=== PATIENT | female | born 2005 | race Two or more races ===

== ENCOUNTER 2025-06-02 10:23 | Outpatient (OUT) | payer BC, SELFPAY ==
--- OUTSIDE RECORDS SUMMARY | 2023-02-22 04:30 | XMS_ITS | Continuity of Care Document ---
Author Organization [facility] Address [address] [place] [address] Phone Care Team Providers Care Core Baker Name Role Phone Shayy WANG, Immanuel Unavailable Unavailable Procedures Procedure Date ADM Pfizer Covid-19 Ready To Use, 2nd Ap Pfizer Reat To Use VAC 30MCG/0.3ML IM Ap Advance Directives Directive Yes / No Effective Date File Name No Information Encounters Encounter Description Practice Location Reason(s) For Visit Diagnoses Date Provider Providers Copied on Encounter [facility], [address], [place], [id number], [place] tel:[phone] COVID [facility] No Information [facility]. [address], [place], [id number], [place]. tel:[phone] Family History Family Member Type Diagnosis Age At Onset No Information Immunizations Vaccine Date Status Comments Flulaval/ Fluarix refused Source: Ne w Immunization Record Pfizer COVID 12y and up administered Sour ce: New Immunization Record Payers Payer name Insurance type Covered alliance party ID Authoriza tion(s) Self Pay Cap [id number] Social History Type Description Quantity Date Captured Comments Alcohol Use Details Unknown Caffeine Use Details Unknown Tobacco Use Status No Information Smoking Status No Information Sex Female Sexual Orientation Straight or heterosexual Gender Identity Female Chief Complaint And Reason For Visit No Information Reason For Referral Reason For Referral No Information Plan Of Treatment Date Type Action Status Goal PRAPARE ASSESSMENT. Due on A due Goal Depression screening. Due on due Goal Influenza vaccine. Due on Ap due Goal Tdap Vaccine. Due on 2022 due Goal RLP. Due on due Goal Tdap. Due on due History Of Present Illness Encounter Date Complaint History Of Prese nt Illness No Information Functional Status Date Functional Assessmen t No Information Instructions Date Instruction Additional Infor mation No Information Assessments Type Assessment Date No Information Patient Care Teams Name Effective Dates (start - stop) Status Members No Information
--- OUTSIDE RECORDS SUMMARY | 2025-05-24 09:30 | XMS_ITS | Encounter Summary ---
Author Organization [facility] Address [address] [place] [address] Care Team Providers Care Oil And Gas Recruiter Name Role Phone Unavailable Primary Care Provider Unavailabl e Reason for Visit * Reason Comments Gynecologic Exam Encounter Details Date Type Department Care Team ([facility] Contact Info) Description 05/24/2025 9:30 AM EDT Office Visit [facility] [address] [id number] Carmen Wallace PA [address] [place] [address] PCOS (polycystic ovarian syndrome) (Primary Dx); Dysmenorrhea; Weight loss; Abnormality of hormone Social History Tobacco Use Types Packs/Day Years Used Date Smoking Tobacco: Never Smokeless Tobacco: Never Alcohol Use Standard Drinks/Week Comments Not Currently 0 (1 standard drink = 0.6 oz pur e alcohol) Comments Unknown Sex and Gender Information Value Date Recorded Sex Assigned at Not on file Legal Sex Female 6:38 PM EDT Gender Identity Not on file Sexual Orientation Not on file Travel History Travel Start Travel End [place] 05/08/2025 05/09/2025 documented as of this encounter Last Filed Vital Signs Vital Sign Reading Time Taken Comments Blood Pressure 126/82 05/24/2025 9:31 AM EDT Pulse - - Temperature - - Respiratory Rate - - Oxygen Saturation - - Inhaled Oxygen Concentration - - Weight 86.5 kg (190 lb 12.8 oz) 05/24/2025 9:31 AM EDT Height - - Body Mass Index - - documented in this encounter Progress Notes * MARK Coombs - 05/24/2025 9:30 AM EDT Reason for Appointment: Patient ID: Ashlyn Guthrie is a 19 y.o. female who presents for Gynecologic Exam Patient presents today for Acute Visit.wants to discuss cycles and hormones MEDICATIONS Current Outpatient Medications Medication Instructions metFORMIN XR (GLUCOPHAGE-XR) 500 mg, Oral, Daily with evening meal, Do not crush, chew, or split. ALLERGIES Allergies Allergen Reactions Aspirin Other With a clotting disorder history PROBLEMS Active Ambulatory Problems Diagnosis Date Noted No Active Ambulatory Problems Resolved Ambulatory Problems Diagnosis Date Noted No Resolved Ambulatory Problems Past Medical History: Diagnosis Date Acute idiopathic thrombocytopenic purpura (HCC) HISTORY PAST MEDICAL HISTORY SOCIAL HISTORY Past Medical History: Diagnosis Date Acute idiopathic thrombocytopenic purpura (HCC) Social History Tobacco Use Smoking status: Never Smokeless tobacco: Never Substance Use Topics Alcohol use: Not Currently Drug use: Not Currently FAMILY HISTORY No family history on file. SURGICAL HISTORY Past Surgical History: Procedure Laterality Date APPENDECTOMY REVIEW OF SYSTEMS Review of Systems: Review of Systems Constitutional: Negative. HENT: Negative. Eyes: Negative. Respiratory: Negative. Cardiovascular: Negative. Gastrointestinal: Negative. Genitourinary: Negative. Musculoskeletal: Negative. Skin: Negative. Neurological: Negative. All other systems reviewed and are negative. Hematological: Negative. Endocrine: Negative. Allergic/Immunologic: Negative. OBJECTIVE Objective: Physical Exam Constitutional: Appearance: Normal appearance. She is normal weight. HENT: Head: Normocephalic. Cardiovascular: Rate and Rhythm: Normal rate. Pulses: Normal pulses. Pulmonary: Effort: Pulmonary effort is normal. Breath sounds: Normal breath sounds. Abdominal: Palpations: Abdomen is soft. Musculoskeletal: General: Normal range of motion. Neurological: General: No focal deficit present. Mental Status: She is alert and oriented to person, place, and time. Psychiatric: Mood and Affect: Mood normal. Behavior: Behavior normal. Thought Content: Thought content normal. Judgment: Judgment normal. Vitals and nursing note reviewed. Vitals: There is no height or weight on file to calculate BMI. BP: 126/82 Patient's last menstrual period was 04/23/2025. ASSESSMENT & PLAN ICD-10-CM 1. PCOS (polycystic ovarian syndrome) E28.2 hCG, quantitative, TSH T4, free CBC and differential Follicle stimulating hormone Luteinizing hormone Hemoglobin A1c DHEA-sulfate DHEA US Pelvis w/ TV metFORMIN XR (Glucophage-XR) 500 MG 24 hr tablet DHEA 2. Dysmenorrhea N94.6 3. Weight loss R63.4 POCT , urine manually resulted 4. Abnormality of hormone E34.9 Patient presents for first ob appointment. Patient wanted to discuss cycles and irregularity. She states most recently her cycles have been more normal but she had several months of heavier period. She denies pain with cycles or known history of PCOS. States mom has endometriosis and sister pcos. We discussed trying metformin to help with weight loss and discussed adipex in the future. We will order labs and US for pcos. Patient does not wish to start hormone therapy. She will schedule for annual exam and we will then review results Documented by MARK Coombs on behalf of: MARK Coombs documented in this encounter Plan of Treatment Pending Results Name Type Priority Associated Diagnoses Date /Time US Pelvis w/ TV Imaging Routine PCOS (polycystic ovarian syndrome) 06/02/2025 10:00 AM EDT Scheduled Orders Name Type Priority Associated Diagnoses Orde r Schedule hCG, quantitative, Lab Routine PCOS (polycystic ovarian syndrome) Ordered: 05/24/2025 TSH Lab Routine PCOS (polycystic ovarian syndrome) Ordered: 05/24/2025 T4, free Lab Routine PCOS (polycystic ovarian syndrome) Ordered: 05/24/2025 CBC and differential Lab Routine PCOS (polycystic ovarian syndrome) Ordered: 05/24/2025 Follicle stimulating hormone Lab Routine PCOS (polycystic ovarian syndrome) Ordered: 05/24/2025 Luteinizing hormone Lab Routine PCOS (polycystic ovarian syndrome) Ordered: 05/24/2025 Hemoglobin A1c Lab Routine PCOS (polycystic ovarian syndrome) Ordered: 05/24/2025 DHEA-sulfate Lab Routine PCOS (polycystic ovarian syndrome) Ordered: 05/24/2025 DHEA Lab Routine PCOS (polycystic ovarian syndrome) Expected: 05/24/2025 (Approximate), Expires: 05/24/2026 US Pelvis w/ TV Imaging Routine PCOS (polycystic ovarian syndrome) Expected: 05/24/2025, Expires: 05/24/2026 documented as of this encounter Procedures Procedure Name Priority Date/Time Associated Diagnosis Comments POCT , URINE Routine 05/24/2025 9:55 AM EDT Weight loss documented in this encounter Results * POCT , urine manually resulted (05/24/2025 9:55 AM EDT) Preg Test, Ur Negative Negative Urine 05/24/2025 9:55 AM EDT Carmen FLORES POINT OF CARE TEST ENTER/EDIT OR DERABLES Final Result documented in this encounter Visit Diagnoses Diagnosis PCOS (polycystic ovarian syndrome)- Primary Polycystic ovaries Dysmenorrhea Weight loss Loss of weight Abnormality of hormone documented in this encounter
--- OUTSIDE RECORDS SUMMARY | 2025-06-02 09:30 | XMS_ITS | Encounter Summary ---
Author Organization [facility] Address [address] [place] [address] Care Team Providers Care Oral Communication Instructor Name Role Phone Unavailable Primary Care Provider Unavailabl e Encounter Details Date Type Department Care Team (Latest Contact Info) Description 06/02/2025 9:30 AM EDT Ancillary Procedure [facility] [address] [place] [address] [place] [address] PCOS (polycystic ovarian syndrome) Social History Tobacco Use Types Packs/Day Years [...] file Travel History Travel Start Travel End [place] 05/08/2025 05/09/2025 documented as of this encounter Plan of Treatment Pending Results Name Type Priority Associated Diagnoses Date /Time US Pelvis w/ TV Imaging Routine PCOS (polycystic ovarian syndrome) 06/02/2025 10:00 AM EDT documented as of this encounter Visit Diagnoses Diagnosis PCOS (polycystic ovarian syndrome) Polycystic ovaries documented in this encounter
--- OUTSIDE RECORDS SUMMARY | 2025-06-02 10:32 | XMS_ITS | Clinical Summary ---
Author Organization [facility] Address [address] [place] [address] Care Team Providers Care Edge Trimmer Mechanic Name Role Phone Unavailable Primary Care Provider Unavailabl e Allergies Active Allergy Reactions Criticality Noted Date Comments Aspirin Other Medium 05/24/2025 With a clotting disorder history Medications metFORMIN XR (Glucophage-XR) 500 MG 24 hr tabletIndication s:PCOS (polycystic ovarian syndrome) Take 1 tablet (500 mg) by mouth in the evening. Take with meals Do not crush, chew, or split. 30 tablet 11 05/24/2025 Active Encounters Date Type Department Care Team Description 06/02/2025 9:30 AM EDT Ancillary Procedure [facility] [address] [place] [address] PCOS (polycystic ovarian syndrome) 05/24/2025 9:30 AM EDT Office Visit [facility] [address] [place] [id number] Carmen Wallace PA PCOS (polycystic ovarian syndrome) (Primary Dx); Dysmenorrhea; Weight loss; Abnormality of hormone 05/24/2025 Bamboo flowsheet [facility] [address] [place] [address] Carmen Wallace PA 05/23/2025 Travel from Last 3 Months Social History Tobacco Use Types Packs/Day Years [...] file Travel History Travel Start Travel End [place] 05/08/2025 05/09/2025 Last Filed Vital Signs Vital Sign Reading Time Taken Comments Blood Pressure 126/82 05/24/2025 9:31 AM EDT Pulse - - Temperature - - Respiratory Rate - - Oxygen Saturation - - Inhaled Oxygen Concentration - - Weight 86.5 kg (190 lb 12.8 oz) 05/24/2025 9:31 AM EDT Height - - Body Mass Index - - Plan of Treatment Health Maintenance Due Date Last Done Comments Influenza Vaccine (#1) 2025 Procedures Procedure Name Priority Date/Time Associated Diagnosis Comments POCT , URINE Routine 05/24/2025 9:55 AM EDT Weight loss from Last 3 Months Results * POCT , urine manually resulted (05/24/2025 9:55 AM EDT) Preg Test, Ur Negative Negative Urine 05/24/2025 9:55 AM EDT Carmen FLORES POINT OF CARE TEST ENTER/EDIT OR DERABLES Final Result from Last 3 Months Insurance
--- OUTSIDE RECORDS SUMMARY | 2025-06-02 10:32 | XMS_ITS | Encounter Summary ---
Author Organization [facility] Address [address] [place] [address] Care Team Providers Care Mechanic Sound Technician Name Role Phone Unavailable Primary Care Provider Unavailabl e Encounter Details Date Type Department Care Team (Late st Contact Info) Description 05/24/2025 Bamboo flowsheet [facility] [address] [address] Carmen Wallace, PA [address] [place] [address] Social History Tobacco Use Types Packs/Day Years [...] file Travel History Travel Start Travel End [place] 05/08/2025 05/09/2025 documented as of this encounter Plan of Treatment Not on file documented as of this encounter Visit Diagnoses Not on filedocumented in this encounter
--- OUTSIDE RECORDS SUMMARY | 2025-06-02 10:32 | XMS_ITS | Encounter Summary ---
Author Organization [facility] Address [address] [place] [address] Care Team Providers Care Bike Technician Name Role Phone Unavailable Primary Care Provider Unavailabl e Encounter Details Date Type Department Care Team (Latest Contact Info) Description 05/23/2025 Travel Social History Tobacco Use Types Packs/Day Years Used Date Smoking Tobacco: Never Assessed Comments Unknown Sex and Gender Information Value [...]
--- OUTSIDE RECORDS SUMMARY | 2025-06-02 10:32 | XMS_ITS | Patient Health Record ---
Author Organization [facility] Address [address] [place] [id number] Care Team Providers Care Movie Actor Name Role Phone Eliazar iH Unavailable [phone] Allergies Allergen (clinical drug ingredient) Drug/Non Drug Allergy documented on EMR Reaction Allergy Type Onset Date Status aspirin Aspirin Unknown Drug Allergy 06/15/2019 Active Reason For Referral No Information Immunizations Vaccine Route Administration Date Status Comme nts *DTaP (Infanrix)-VFC OTH Other/Miscellaneous 2003 Administered Status:Complet e ,Reason:Given or N/A *DTaP (Infanrix)-VFC OTH Other/Miscellaneous 06/19/2004 Administered Status:Complet e ,Reason:Given or N/A *DTaP (Infanrix)-VFC OTH Other/Miscellaneous 08/30/2004 Administered Status:Complet e ,Reason:Given or N/A *DTaP (Infanrix)-VFC OTH Other/Miscellaneous 11/30/2005 Administered Status:Complet e ,Reason:Given or N/A *DTaP (Infanrix)-VFC OTH Other/Miscellaneous 10/20/2007 Administered Status:Complet e ,Reason:Given or N/A *Hep A, ped/adol, 2 dose-VFC IM Intramuscular 05/31/2016 Administered Status:Complet e ,Reason:Given or N/A *Hep A, ped/adol, 2 dose-VFC IM Intramuscular 09/24/2018 Administered Status:Complet e ,Reason:Given or N/A *Hep B, adolescent or pediatric (11-19), 3 dose schedule-VFC OTH Other/Miscellaneous 2003 Administered Status:Complet e ,Reason:Given or N/A *Hep B, adolescent or pediatric (11-19), 3 dose schedule-VFC OTH Other/Miscellaneous 06/19/2004 Administered Status:Complet e ,Reason:Given or N/A *Hep B, adolescent or pediatric (11-19), 3 dose schedule-VFC OTH Other/Miscellaneous 08/30/2004 Administered Status:Complet e ,Reason:Given or N/A *MMR-VFC OTH Other/Miscellaneous 08/30/2004 Administered Status:Complet e ,Reason:Given or N/A *MMR-VFC OTH Other/Miscellaneous 10/20/2007 Administered Status:Complet e ,Reason:Given or N/A *MMR-VFC OTH Other/Miscellaneous 11/24/2014 Administered Status:Complet e ,Reason:Given or N/A *Pneumococcal conjugate PCV 13-VFC OTH Other/Miscellaneous 11/30/2005 Administered Status:Complet e ,Reason:Given or N/A *Pneumococcal conjugate PCV 13-VFC OTH Other/Miscellaneous 10/20/2007 Administered Status:Complet e ,Reason:Given or N/A *Tdap (Adacel)-VFC IM Intramuscular 10/06/2014 Administere d Status:Complet e ,Reason:Given or N/A *Varicella (Varivax)-VFC OTH Other/Miscellaneous 11/30/2005 Administered Status:Complet e ,Reason:Given or N/A DTaP-Hep B-IPV OTH Other/Miscellaneous 2003 Administered Status:Complet e ,Reason:Given or N/A DTaP-Hep B-IPV OTH Other/Miscellaneous 2003 Administered Status:Complet e ,Reason:Given or N/A DTaP-Hep B-IPV OTH Other/Miscellaneous 02/03/2004 Administered Status:Complet e ,Reason:Given or N/A DTaP-Hep B-IPV OTH Other/Miscellaneous 06/19/2004 Administered Status:Complet e ,Reason:Given or N/A DTaP-Hep B-IPV OTH Other/Miscellaneous 10/20/2007 Administered Status:Complet e ,Reason:Given or N/A Hib (HbOC), 4 dose schedule OTH Other/Miscellaneous 2003 Administered Status:Complet e ,Reason:Given or N/A Hib (HbOC), 4 dose schedule OTH Other/Miscellaneous 06/19/2004 Administered Status:Complet e ,Reason:Given or N/A Hib (HbOC), 4 dose schedule OTH Other/Miscellaneous 08/30/2004 Administered Status:Complet e ,Reason:Given or N/A HPV (human papillomavirus), quadrivalent, 3 dose schedule IM Intramuscular 10/06/2014 Administered Status:Complet e ,Reason:Given or N/A HPV (human papillomavirus), quadrivalent, 3 dose schedule OTH Other/Miscellaneous 02/04/2015 Administered Status:Complet e ,Reason:Given or N/A HPV (human papillomavirus), quadrivalent, 3 dose schedule IM Intramuscular 05/31/2016 Administered Status:Complet e ,Reason:Given or N/A Influenza (split), 3 yrs and above OTH Other/Miscellaneous 10/20/2007 Administered Status:Complet e ,Reason:Given or N/A Meningococcal [id number] IM Intramuscular 10/06/2014 Administered Status:Complet e ,Reason:Given or N/A Meningococcal MCV4P IM Intramuscular 08/01/2021 Administer ed Status:Complet e ,Reason:Given or N/A Social History Tobacco Use: Social History Observation Description Date Details (start date - stop date) Never Smoker NA - NA Sex Assigned At : Social History Observation Description Sex Assigned At Female Household Question Answer Notes Number of adults in household: 4 Number of children in household: 0 Tobacco Use/Smoking Question Answer Notes Tobacco use: nonsmoker Alcohol Screen (Audit-C) Question Answer Notes Did you have a drink containing alcohol in the p ast year? No Points 0 Interpretation Negative Problems Problem Type SNOMED Code ICD Code Onset Dates Problem Status W/U Status Risk Notes Problem BMI (body mass index), pediatric, 5% to less than 85% for age (V85.52) (V85.52) Active confirmed Problem Vaccination given (486280792) Encounter for immunization (Z23) Inactive confirmed Problem Depression screening (956802582) Screening for depression (Z13.31) Inactive confirmed Description:De pression screening Problem Well adolescent (495683538) Well adolescent visit (Z00.3) Inactive confirmed Comment:patien t in good overall health w/o complaints. received hep A vaccine today, uptodate until age 16.provided copy of vaccine records. encouraged to start doing some regular exercise. encouraged to limit foods with high sugar, salt, fast foods. get 3-5services vegetables/fru its daily. encouraged to follow-up if ever any concerns regarding mood changes., Problem Well child visit (372759958) Child physical exam (V20.2) (V20.2) Inactive confirmed Comment:1)Vacc ination:No shot records. Mom will provide the shot record. 2) To make dental appt. for regular check and dental caries. 3) Hearing and Vision done today were both normal. 4) CBC and UA to be done today. 5)Anticipatory guidance given regarding diet, sun screen, stranger danger, injury prevention, exposure to smoking etc. 6)Follow up in 1 week for shots with updated records as [place] or as needed Mom verbalized understanding. Luda interpreted for me., Problem Caries (24810067) Caries (K02.9) Inactive confirmed Descriptio n:De ntal caries Problem Well adolescent (815232024) Well adolescent visit (Z00.129) Inactive confirmed Comment:Immuni zed Hep a and guardasil today. f/u in 6 mos. for next Hep a or as needed., Problem History of idiopathic thrombocytopenic purpura (Z86.2) Problem resolved confirmed Comment:at age 4months can recur, and sometimes as response to illness, infection checking CBC to ensure no abnormalities found w/ new onset skin changes, Problem Gastritis, acute (535.0) (535.0) 2008 Problem resolved confirmed Problem Dermatitis (753604069) Dermatitis (L30.9) Problem resolved confirmed Comment:abnorm al new onset dermatitis, some lesions resemble plant dermatitis like poison jeremias, others are almost like light early bruises and then knee lesion very irregular large marking with hx of ITP will test CBC as some concern for reactionary response to irritant advised can continue topical preparation at home if it is helping will send topical steroid as well for use to calm irritation will call w/ lab result., Problem History and physical examination, school (02577947) School health examination (Z02.0) Problem resolved confirmed Comment:-Pt is fit for school, no current concerns for the pt at this time -Mom was worried about slight deviation of pt's left eye ball, explained that her vision is normal and the pt is asymptomatic, if mom is concerned I suggested she take her to wool tamper, PVU -Completed anticipatory guidance with mom and daughter, encouraged at least 60 mins of play/day, Problem Requires vaccination (190560215) Need for hepatitis A immunization (Z23) Problem resolved confirmed Problem Dietary management surveillance (586710462) Dietary counseling (V65.3) (V65.3) Active confirmed Plan Of Treatment No Information Medical (General) History Medical History History ICD Code No Known Problems, No significant history of medical diseas es, Gastritis, acute (535.0) (resolved 04/03) Dermatitis (resolved 04/03/2023) School health examination (resolved 03/18) Need for hepatitis A immunization (resol lauren 04/03/2023) History of idiopathic thrombocytopenic p urpura (resolved 04/03/2023) Surgical History Surgery Date(Month/Year) Appendectomy,
[2025-06-02 10:58] LABS: Hematocrit 38.1 % (36.0-48.0); Hemoglobin 12.9 g/dL (12.0-16.0); Immature Granulocytes Abs Auto 0.02 10^3/uL (0.00-0.03); Immature Granulocytes Pct Auto 0.2 % (0.0-0.5); Lymphocytes Absolute Auto 3.3 10^3/uL (1.2-3.8); Mean Corpuscular HGB Conc 33.9 g/dL (29.9-35.2); Mean Corpuscular Hemoglobin 29.1 pg (26.7-34.0); Mean Corpuscular Volume 86.0 fL (81.0-99.0); Platelet Count 334 10^3/uL (150-450); Red Blood Count 4.43 10^6/uL (4.20-5.40); White Blood Count 9.9 10^3/uL (4.0-11.0)
[2025-06-02 11:36] LABS: Thyroid Stimulating Hormone 1.338 uIU/mL (0.358-3.740)
[2025-06-03 05:10] LABS: FSH 3.1 mIU/mL (.)
== END 2025-06-02 10:24 | disposition home or self-care (01) ==
LOC: LAB 10:30
PROVIDERS: Visit Provider Physician Assistant
DX: E28.2 Polycystic ovarian syndrome (principal)
CPT/HCPCS: 36415; 82627; 83001; 83002; 83036; 84439; 84443; 84702; 85025